=== PATIENT | male | born 1940 | race Caucasian/White ===

== ENCOUNTER → 2016-07-10 | Day surgery (SDC) | payer MEDICARE, OTHER ==
[~2016-07-10] MED LIST: ALLO100T PO; ASPI81TA81 PO; ATOR40TA16 PO; BACITRACIN IM FOR SOLN 50,000 UNIT VIAL ONE; BOSW5TAB PO; BUPIVACAINE/EPINEPHRINE 0.25% PF 30 ML VIAL ONE; CART120C PO; FISHCAP4 PO; KETOROLAC TROMETHAMINE 30 MG/ML (IVP) VIAL IV PUSH ONE; LACTATED RINGER'S 1000 ML INJ 1,000 ML ONE; LEVO.1 PO; MIDAZOLAM HCL 2 MG/2 ML VIAL ONE; MULT-135 PO; ONDANSETRON HCL 4 MG/2 ML VIAL IV PUSH ONE; PROPOFOL 200 MG/20 ML AMP IV ONE; SODIUM CHLORIDE 0.9% INJ 10 ML ONE; TELM40 PO; ceFAZolin 2 GM PREMIX 50 ML ONE
--- NOTE | 2016-07-13 11:08 | TN ---
cc: JORDAN JONES MD DATE OF SURGERY 07/10/2016 PREOPERATIVE DIAGNOSIS Left recurrent inguinal hernia. POSTOPERATIVE DIAGNOSIS Left recurrent inguinal hernia. PROCEDURE 1. Laparoscopic (TEP) repair of left recurrent inguinal hernia with mesh. 2. Laparoscopic explantation of mesh. ATTENDING SURGEON Dr. Jones ANESTHESIA General. ASSISTANCE None. BLOOD LOSS Less than 10 cc. COMPLICATIONS None. FINDINGS Moderate-sized recurrent left inguinal hernia with bunched up mesh medially from previous open repair. INDICATIONS FOR PROCEDURE Patient is a 76-year-old male with at least one and likely two previous open hernia repairs of his left inguinal hernia. He is unable to obtain records and these were done at outside state many years ago. The patient developed a recurrent left bulge and pain which was consistent with previous hernias. The patient is very active physically and wished to undergo repair. I have discussed with the patient about the risks, benefits and alternatives to laparoscopic repair. I recommend laparoscopic repair for repair of his hernias. He has never had this approach and this is what I recommend for recurrent hernias of this nature. He agreed to undergo the procedure. PROCEDURE After informed was obtained the patient was taken to the operating room and placed in supine position at the [facility] and placed under general anesthesia with LMA airway. The patient's groin, penis and scrotum were prepped and draped in a sterile fashion. Time-out was performed. Local anesthetic was instilled at a planned port site to the left of the umbilicus. We incised a small 2 cm incision to the left of the umbilicus and spread down through the subcutaneous tissue. We opened the anterior rectus sheath and spread the left rectus muscle laterally. We are able to see the posterior rectus sheath and we finger dissected this down past the semilunar line into the preperitoneal space. We placed the dissection balloon and we inflated this without difficulty and mobilized our space as visualized under the laparoscope. We then placed a 10-mm trocar and insufflated the preperitoneal space and placed a 10 mm scope through this port. We were able to place two 5 mm ports under direct visualization at the midline without difficulty. We then used the two blunt graspers to easily dissect out the left side. There was minimal scarring. We reduced a moderate-sized hernia with preperitoneal fat and possibly some epiploic appendages from the colon but there is no actual bowel or colon in the hernia. Once this was completely removed we could see that there is mesh bunched up in the direct space and there was no mesh in the indirect space and this was an indirect hernia. We also noted this was possibly a plug type mesh or bunched up and we used a laparoscopic Endo patricia and blunt dissectors to dissect this free as much as possible. We removed approximately 50% of the patient's mesh that was bulging medially and may have related to some pain. This would allow our new mesh to lay flat and remove this foreign body type reaction that would lead to pain. We then placed a custom cut 6 inch x 6 inch mesh that was cut to approximately 6 inches x 4 inches and placed this into the left groin. We had good coverage from the pubis all laterally and inferiorly in a "taco shell" technique. We had excellent coverage of the direct and indirect space without difficulty. We did place approximately three tacks, one above the pubis and two more along the transversalis fascia and superiorly. We then at this point in time we turned towards completion and removed the insufflation and ensured our mesh lay in appropriate anatomic position with removal of insufflation. Removed all ports without difficulty. We closed the anterior rectus sheath with [id number] Vicryl suture. We closed the skin with Monocryl and Dermabond. Patient scrotal support was placed. The patient was discontinued from anesthesia, taken to the PACU in stable condition. The patient tolerated the procedure well. No apparent complications. All counts were correct and I was present and scrubbed for the entire procedure. MD JERZY Chou/ZAYDA /10:08 PM /10:37 AM DELMER
== END | disposition home or self-care (01) ==
LOC: ESDC 06:56
PROVIDERS: ATTEND Surgery
DX: K40.91 Unilateral inguinal hernia, without obstruction or gangrene, recurrent (principal)
CPT/HCPCS: 00830; 49520; 88305; C1727; C1781; J0690; J1885; J2405; J3010; J7120; J2250